=== PATIENT | female | born 1980 | race Two or more races ===

== ENCOUNTER 2016-09-22 22:22 | Emergency (ER) | payer MEDICAID ==
[~2016-09-22] VITALS: Ht 149.9 cm; Wt 83.2 kg
[2016-09-22 23:05] VITALS: BP 124/90
[2016-09-23] MEDS ORDERED: FLUCONAZOLE 100 MG TAB PO ONE (02:15)
== END 2016-09-23 02:22 | disposition home or self-care (01) ==
LOC: ER 22:29
DX: B36.9 Superficial mycosis, unspecified (principal); L03.114 Cellulitis of left upper limb

== ENCOUNTER 2017-01-21 18:54 | Emergency (ER) | payer MEDICAID ==
[~2017-01-21] VITALS: Ht 147.3 cm; Wt 83.9 kg
[2017-01-21 19:36] VITALS: BP 120/87
[2017-01-21 20:16] LABS: Urine Bilirubin Negative (Negative); Urine Blood Negative /uL (Negative); Urine Color Yellow (Yellow); Urine Glucose Normal (Normal); Urine Ketone Negative (Negative); Urine Nitrite Negative (Negative); Urine RBC 1 /hpf (0 - 4); Urine Squamous Epithelial Cell MOD /hpf (<5); Urine Urobilinogen Normal (Negative)
[2017-01-21 20:38] LABS: Basophils # (auto) 0 uL; Basophils % (auto) 0.4 % (0.0-2.0); Eosinophils # (auto) 0.2 uL; Eosinophils % (auto) 1.6 % (0.0-7.0); Hematocrit 46.7 % (36.0-46.0); Hemoglobin 15.5 g/dL (12.2-16.2); Lymphocytes # (auto) 3.7 uL; Lymphocytes % (auto) 33.8 % (10.0-50.0); Mean Corpuscular Hemoglobin 29.6 pg (28.0-32.0); Mean Corpuscular Hgb Conc. 33.2 g/dL (32.0-36.0); Mean Corpuscular Volume 89.2 fL (80.0-100.0); Mean Platelet Volume 8.4 fL (6.9-10.8); Monocytes # (auto) 0.6 uL; Monocytes % (auto) 5.3 % (0.0-12.0); Neutrophils # (auto) 6.4 uL; Neutrophils % (auto) 58.9 % (37.0-80.0); Platelet Count (auto) 397 10^3/uL (140-450); Red Cell Distribution Width 13.5 % (11.8-14.3); White Blood Cell 10.9 10^3/uL (4.4-10.8)
[2017-01-21 20:52] LABS: Albumin 3.7 g/dL (3.4-5.0); Calcium 8.5 mg/dL (8.5-10.1); Potassium 3.9 mmol/L (3.5-5.1)
[2017-01-21 20:54] LABS: BUN/Creatinine Ratio 12.8
[2017-01-21 20:56] LABS: Bilirubin, Total 0.2 mg/dL (0.2-1.0); Total Protein 7.9 g/dL (6.4-8.2)
== END 2017-01-22 08:15 | disposition left against medical advice (07) ==
LOC: ER 18:54
DX: K62.89 Other specified diseases of anus and rectum (principal); K59.00 Constipation, unspecified; Z53.21 Procedure and treatment not carried out due to patient leaving prior to being seen by health care provider
CPT/HCPCS: 36415; 80053; 81001; 84702; 85025